=== PATIENT | male | born 1980 | race Two or more races ===

== ENCOUNTER 2020-12-03 03:48 | Emergency (ER) | payer SELFPAY ==
[~2020-12-03] VITALS: Ht 185.4 cm; Wt 99.8 kg
[2020-12-03 03:55] VITALS: BP 151/97
[2020-12-03] MEDS ORDERED: BACITRACIN INJ 50000 UNIT VIAL TOP ONE (04:00)
== END 2020-12-03 04:13 ==
LOC: ER 03:48
DX: S50.812A Abrasion of left forearm, initial encounter (principal); X58.XXXA Exposure to other specified factors, initial encounter; Y93.89 Activity, other specified; Y92.89 Other specified places as the place of occurrence of the external cause; Y99.8 Other external cause status